=== PATIENT | female | born 1985 | race Two or more races ===

== ENCOUNTER 2021-08-17 09:37 | Emergency (ER) | payer OTHER ==
[~2021-08-17] VITALS: Ht 154.9 cm; Wt 59.0 kg
== END 2021-08-17 17:53 | disposition home or self-care (01) ==
LOC: ER 09:37
DX: D64.9 Anemia, unspecified (principal); D25.9 Leiomyoma of uterus, unspecified

== ENCOUNTER 2021-10-17 07:17 | Day surgery (SDC) | payer OTHER | END 2021-10-17 14:40 | disposition home or self-care (01) | LOC: AMB-ENDOS 07:17 | PROVIDERS: ATTEND Colon & Rectal Surgery | DX: K64.4 Residual hemorrhoidal skin tags (principal); D50.9 Iron deficiency anemia, unspecified ==